=== PATIENT | female | born 1965 | race Two or more races ===

== ENCOUNTER → 2024-09-02 | Outpatient (CLI) | payer MEDICAID, SELFPAY ==
--- NOTE | 2024-09-02 08:45 | XR_ITS ---
Examination: MRI right hand, without contrast Date and time of exam: March 02, 2025 0907 hrs. Indications: Right fourth and fifth digit pain weakness in the right hand paresthesias after crush injury to the hand Technique: Multiple axial sagittal and coronal images of the right hand have been obtained with the Siemens high-resolution 1.5 [employer] MRI scanner. Images obtained include T2-weighted fat-suppressed sagittal sections, TR 3500, TE 46, T2 weighted coronal fat suppressed images, TR 3050, TE 84, T2-weighted transverse fat suppressed images, TR 3260, TE 63, proton density transverse images, TR 4720 TE 46, and T1 weighted coronal images, TR 560, TE 13. Findings: Cystic change in the navicular and 9 8 Cushing fibrocartilage partially visualized grossly intact Significant marrow edema involving the trapezium, base and shaft of the fifth metacarpal and base of the fourth metacarpal Milder marrow edema base of the proximal phalanx second digit Flexor tendons intact No ganglion cyst versus soft tissue hematoma Impression: Severe marrow edema trapezium, base and shaft of the fifth metacarpal and base of the fourth metacarpal Recommend CT scan hand follow-up to exclude microtrabecular fractures involving the trapezium, fifth metacarpal and base of the fourth metacarpal
== END | disposition home or self-care (01) ==
DX: R60.1 Generalized edema (principal)
CPT/HCPCS: 73218